=== PATIENT | male | born 1975 | race Caucasian/White ===

== ENCOUNTER 2017-01-20 01:37 | Emergency (ER) | payer OTHER ==
[2017-01-20 01:58] VITALS: BP 116/79; PULSE 89; RESP 20; TEMP 98; O2SAT 95
[2017-01-20] MEDS ORDERED: Naphazoline-Pheniramine Ophth Soln OP STA (02:29)
--- NOTE | 2017-01-20 02:34 | C.PDOC ---
History Of Present Illness Patient is a 41 year old male who presents to the ER with a complaint of congestion, itchy/burning eyes and a headache. Patient states he has never had allergies like this before. Denies throat swelling and SOB. Time Seen by Provider: 01/20/17 02:14 Chief Complaint (Nursing): Cough, Cold, Congestion History Per: Patient History/Exam Limitations: no limitations Onset/Duration Of Symptoms: Hrs Current Symptoms Are (Timing): Still Present Recent travel outside of the [place]: No Past Medical History Reviewed: Historical Data, Nursing Documentation, Vital Signs Vital Signs: Last Vital Signs Temp 98 F 01/20/17 01:56 Pulse 89 01/20/17 01:56 Resp 20 01/20/17 01:56 BP 116/79 01/20/17 01:56 Pulse Ox 95 01/20/17 05:18 - Medical History PMH: No Chronic Diseases Surgical History: No Surg Hx Family History: States: Unknown Family Hx - Social History Hx Alcohol Use: No Hx Substance Use: No Review Of Systems Eyes: Positive for: Other (Itchy/burning eyes) ENT: Positive for: Nose Congestion. Negative for: Throat Swelling Respiratory: Negative for: Shortness of Breath Neurological: Positive for: Headache Physical Exam - Physical Exam Appears: Well, Non-toxic Skin: Normal Color, Warm, Dry Head: Atraumatic, Normacephalic Eye(s): bilateral: Normal Inspection, PERRL, EOMI, Other (Mildly injected) Nose: Normal, Other (Congestion) Oral Mucosa: Moist Chest: Symmetrical, No Tenderness Cardiovascular: Rhythm Regular, No Murmur Respiratory: Normal Breath Sounds, No Rales, No Rhonchi, No Wheezing Gastrointestinal/Abdominal: Soft, No Tenderness Neurological/Psych: Oriented x3, Normal Speech, Normal Cognition ED Course And Treatment O2 Sat by Pulse Oximetry: 95 (Room air) Pulse Ox Interpretation: Normal Progress Note: Atarax, prednisone and naphcon-A administered. Disposition - Disposition Disposition: HOME/ ROUTINE Disposition Time: 02:31 Condition: STABLE Additional Instructions: FOLLOW UP WITH PMD WITHIN 1-2 DAYS. RETURN TO ED IF FEEL WORSE. Prescriptions: Fexofenadine HCl [SilviaNf] 180 mg PO DAILY #20 tab Azelastine HCl 1 drop OP BID #6 ml Fluticasone Nasal [Flonase] 1 spr NS BID #1 spr Instructions: Allergies (ED) - Clinical Impression Clinical Impression: Seasonal allergies - Scribe Statement The provider has reviewed the documentation as recorded by the Scribe Abdirizak [place] All medical record entries made by the Scribe were at my direction and personally dictated by me. I have reviewed the chart and agree that the record accurately reflects my personal performance of the history, physical exam, medical decision making, and the department course for this patient. I have also personally directed, reviewed, and agree with the discharge instructions and disposition.
== END 2017-01-20 03:01 | disposition home or self-care (01) ==
LOC: C.ER 01:37
DX: J30.2 Other seasonal allergic rhinitis (principal)